=== PATIENT | male | born 1985 | race Caucasian/White ===

== ENCOUNTER 2016-11-09 00:45 | Emergency (ER) | payer OTHER ==
[~2016-11-09] VITALS: Ht 177.8 cm; Wt 100.0 kg
[2016-11-09 00:48] VITALS: BP 157/86; PULSE 131; RESP 30; TEMP 98.6; O2SAT 100
[2016-11-09] MEDS ORDERED: ADVI200C PO (01:00)
[2016-11-09] MEDS ORDERED: PEPT262C2 CHEW (01:00)
[2016-11-09] MEDS ORDERED: PHENTAB (01:00)
[2016-11-09] MEDS ORDERED: DEXT1CAP37 PO (01:00)
[2016-11-09] MEDS ORDERED: SODIUM CHLOR 0.9% 1000 ML INJ 1,000 ML IV ONE ×2 (01:15→03:00)
[2016-11-09] MEDS ORDERED: methylPREDNISolone SOD SUCC 125 MG/2 ML VIAL IV PUSH ONE (01:30)
[2016-11-09] MEDS ORDERED: AZITHROMYCIN INJ 500 MG in SODIUM CHLOR 0.9% 250 ML INJ 250 ML IV ONE (01:30)
--- NOTE | 2016-11-09 01:37 | PD ---
HPI Chief Complaint: Respiratory Symptoms Time Seen by Provider: 01:02 Travel History International Travel<30 days: No Contact w/Intl Traveler<30days: No Traveled to known affect area: No History of Present Illness HPI The patient is a 31 year old male who presents to the [facility] emergency department with a history of congestion, cough that began 4 days ago. He reports that it was initially associated with diarrhea a couple of times per day , however this has improved with using Pepto-Bismol. The patient reports that he has been taking iksq-iuo-lhyoyav decongestants to help with the cough and congestion. He reports that he does have a dry cough. He reports that he has a tickle in the back of his throat and sore throat. He denies any known fevers. He denies having any nausea or vomiting. Review of systems, the patient denies having any chest pain or chest pressure. He denies having any lower extremity edema, calf pain, or erythema. He denies having any abdominal pain, urinary symptoms, or neurologic symptoms. PFSH Past Medical History Narrative Medical The patient reports having a history of pneumonia 4 years ago, pharyngitis, and bronchitis July 2016. Medical History: Denies Significant Hx Tetanus Vaccination: < 5 Years Influenza Vaccination: No Past Surgical History Narrative Surgical The patient denies any past surgical history. Surgical History: No Previous Surgery Social History Alcohol Use: Yes (OCC) Tobacco Use: No Substance Use: No Allergies-Medications (Allergen,Severity, Reaction): Coded Allergies: No Known Allergies (Unverified , 11/09/16) Reported Meds & Prescriptions Reported Meds & Active Scripts Active Reported Advil Pm (Ibuprofen-Diphenhydramine) 200-25 Mg Cap 1 Cap PO HS PRN Tylenol Cold & Flu Severe (Mbdxvryfdpkja-TI-Oclrvqvxcwr-Apap) 0-85-435-325 Mg Tab 10 Pepto-Bismol (Bismuth Subsalicylate) 262 Mg Chew 524 Mg CHEW PRN Daytime Cold & Flu Relief (Yvgvofbsckspidkf-Yvrkcqwiezmsb-Dfzozjalsgxwy) 10-5- 325 mg Cap 2 Cap PO Q4H PRN Review of Systems Except as stated in HPI: all other systems reviewed are Neg General / Constitutional: No: Fever Eyes: No: Visual changes HENT: Positive: Sore Throat, Rhinorrhea, Congestion, No: Headaches Cardiovascular: Positive: Dyspnea on exertion, No: Chest Pain or Discomfort Respiratory: Positive: Cough, Shortness of Breath Gastrointestinal: No: Abdominal Pain Genitourinary: No: Urgency, Frequency, Dysuria, Flank Pain Musculoskeletal: No: Pain Skin: No Rash Neurologic: No: Weakness, Focal Abnormalities, Change in Mentation, Slurred Speech, Paresthesia, Sensory Disturbance Psychiatric: No: Depression Endocrine: No: Polyuria, Polydipsia Hematologic/Lymphatic: No: Easy Bruising Physical Exam Narrative General: The patient is a well-developed well-nourished male who arrives with reported shortness of breath, tachycardia with heart rate in the 130s Head and Neck exam: Head is normocephalic atraumatic. Eyes: Pupils are equal round and reactive to light. Nose: Midline septum with pink mucous membranes Mouth: Dentition unremarkable. Moist mucus membranes. Posterior oropharynx is erythematous with tonsillar hypertrophy and exudate on the right tonsil. Uvula midline. Airway patent. Neck: No palpable lymphadenopathy. No nuchal rigidity. No thyromegaly. Cardiovascular: Sinus tachycardia in the 120s initially on my arrival without murmurs, gallops, or rubs. No pulse deficit to the extremities with simultaneous auscultation and palpation of his radial artery. Lungs: Clear to auscultation bilaterally. No wheezes, rhonchi, or rales. Abdomen: Soft, without tenderness to palpation in all 4 quadrants of the abdomen. No guarding, rebound, or rigidity. Normal bowel sounds are audible Extremities: No clubbing, cyanosis, or edema. 2+ pulses in all 4 extremities. No calf tenderness on palpation. Back: No spinous process tenderness to palpation. No costovertebral angle tenderness to palpation. Neurologic Exam: Grossly nonfocal. Skin Exam: No rash noted. Intact skin that is warm and dry. Data Data Last Documented VS Vital Signs Date Time Temp Pulse Resp B/P Pulse Ox O2 Delivery O2 Flow Rate FiO2 11/09/16 03:25 102 16 144/80 100 Room Air 11/09/16 00:52 2 11/09/16 00:48 98.6 Orders Electrocardiogram (11/09/16 01:08) Complete Blood Count With Diff (11/09/16 01:08) Comprehensive Metabolic Panel (11/09/16 01:08) Creatine Kinase (Cpk) (11/09/16 01:08) Ckmb (Isoenzyme) Profile (11/09/16 01:08) Troponin I (11/09/16 01:08) B-Type Natriuretic Peptide (11/09/16 01:08) Prothrombin Time / Inr (Pt) (11/09/16 01:08) Act Partial Throm Time (Ptt) (11/09/16 01:08) Blood Culture (11/09/16 01:08) Urinalysis - C+S If Indicated (11/09/16 01:08) Magnesium (Mg) (11/09/16 01:08) Thyroid Stimulating Hormone (11/09/16 01:08) Chest, Single Ap (11/09/16 01:08) Sodium Chlor 0.9% 1000 Ml Inj (Ns 1000 M (11/09/16 01:15) Lactic Acid Sepsis Protocol (11/09/16 01:08) Influenzae A/B Antigen (11/09/16 01:08) Group A Rapid Strep Screen (11/09/16 01:16) Azithromycin Inj (Zithromax Inj) (11/09/16 01:30) Methylprednisolone So Succ Inj (Solumedr (11/09/16 01:30) Strep Culture (Group A) (11/09/16 01:21) CKMB (11/09/16 01:40) CKMB% (11/09/16 01:40) Sodium Chlor 0.9% 1000 Ml Inj (Ns 1000 M (11/09/16 03:00) Potassium Chloride (Kcl) (11/09/16 03:00) Ct Pulmonary Angiogram (11/09/16 02:52) Iohexol 350 Inj (Omnipaque 350 Inj) (11/09/16 03:03) Labs Laboratory Tests Test 11/09/16 01:40 White Blood Count 11.9 TH/MM3 Red Blood Count 4.87 MIL/MM3 Hemoglobin 14.5 GM/DL Hematocrit 42.3 % Mean Corpuscular Volume 86.9 FL Mean Corpuscular Hemoglobin 29.7 PG Mean Corpuscular Hemoglobin 34.2 % Concent Red Cell Distribution Width 12.7 % Platelet Count 307 TH/MM3 Mean Platelet Volume 10.2 FL Neutrophils (%) (Auto) 51.1 % Lymphocytes (%) (Auto) 32.3 % Monocytes (%) (Auto) 11.9 % Eosinophils (%) (Auto) 4.0 % Basophils (%) (Auto) 0.7 % Neutrophils # (Auto) 6.1 TH/MM3 Lymphocytes # (Auto) 3.9 TH/MM3 Monocytes # (Auto) 1.4 TH/MM3 Eosinophils # (Auto) 0.5 TH/MM3 Basophils # (Auto) 0.1 TH/MM3 CBC Comment DIFF FINAL Differential Comment Prothrombin Time 11.1 SEC Prothromb Time International 1.0 RATIO Ratio Activated Partial 27.6 SEC Thromboplast Time Urine Color LIGHT-YELLOW Urine Turbidity CLEAR Urine pH 7.0 Urine Specific [place] 1.008 Urine Protein NEG mg/dL Urine Glucose (UA) NEG mg/dL Urine Ketones NEG mg/dL Urine Occult Blood NEG Urine Nitrite NEG Urine Bilirubin NEG Urine Urobilinogen LESS THAN 2.0 MG/DL Urine Leukocyte Esterase NEG Urine RBC LESS THAN 1 /hpf Urine WBC LESS THAN 1 /hpf Urine Mucus FEW /lpf Microscopic Urinalysis Comment CULT NOT INDICATED Sodium Level 138 MEQ/L Potassium Level 3.0 MEQ/L Chloride Level 101 MEQ/L Carbon Dioxide Level 25.0 MEQ/L Anion Gap 12 MEQ/L Blood Urea Nitrogen 11 MG/DL Creatinine 1.46 MG/DL Estimat Glomerular Filtration 57 ML/MIN Rate Random Glucose 116 MG/DL Lactic Acid Level 1.5 mmol/L Calcium Level 8.6 MG/DL Magnesium Level 1.7 MG/DL Total Bilirubin 0.3 MG/DL Aspartate Amino Transf 27 U/L (AST/SGOT) Alanine Aminotransferase 48 U/L (ALT/SGPT) Alkaline Phosphatase 89 U/L Total Creatine Kinase 103 U/L Creatine Kinase MB LESS THAN 0.5 NG/ML Troponin I LESS THAN 0.02 NG/ML B-Type Natriuretic Peptide 21 PG/ML Total Protein 7.9 GM/DL Albumin 4.0 GM/DL Thyroid Stimulating Hormone 2.330 uIU/ML 3rd Gen [facility] Medical Decision Making Medical Screen Exam Complete: Yes Emergency Medical Condition: Yes Medical Record Reviewed: Yes Interpretation(s) Last Impressions Chest X-Ray 11/09/16 0108 Signed Impressions: Service Date/Time: Wednesday, November 09, 2016 01:20 - CONCLUSION: No acute disease. Ronald Acosta MD Differential Diagnosis Strep pharyngitis, versus viral syndrome, versus bronchitis, versus pneumonia, versus PE, versus reactive airway Narrative Course During the course of the patients emergency department visit, the patients history, examination, and differential diagnosis were reviewed with the patient. The patient had IV access obtained and blood work sent for analysis. The patient was placed on a monitoring engineer with oximetry and blood pressure monitoring. An EKG was done. The patient's EKG shows a sinus tachycardia rate of 123, no acute ST segment elevation or depression. The patient was provided normal saline 1 L IV fluid bolus. The patient was given Solu-Medrol 125 mg IV. The patient was given azithromycin 500 mg IV times one. The patients laboratory studies were reviewed and remarkable for a white count of 11.9, hemoglobin 14.5, platelets 307 with 11.9 monocytes, CMP is remarkable for potassium of 3.0, creatinine 1.46, glucose 116. The patient's potassium was supplemented orally. The patient was given another liter of normal saline IV fluids. Cardiac enzymes were negative, BNP 21, TSH 2.33, lactic acid 1.5, PT PTT unremarkable, urinalysis unremarkable. A rapid strep test was negative, influenza antigen was negative. Radiology studies were reviewed and remarkable for a chest x-ray showed no acute abnormality. CTA to rule out PE was read as negative for pulmonary embolism by the reading radiologist. The patient's symptoms are most consistent with acute bronchitis. The patient will be discharged home with a prescription for a azithromycin to complete his course, and a short course of prednisone. The patient is resting comfortably and feels better, is alert and in no distress. The patients results and examination findings The repeat examination is unremarkable and benign. The history, exam, diagnostic testing, and current condition do not suggest any significant pathology to warrant further testing, continued ED treatment, admission, or surgical evaluation at this point. The vital signs have been stable. The patient does not have uncontrollable pain, intractable vomiting, or other significant symptoms. The patient's condition is stable and appropriate for discharge. The patient will pursue further outpatient evaluation with a primary care physician or other designated or consulting physician as indicated in the discharge instructions. The patient expressed understanding and was agreeable with this plan. Diagnosis Primary Impression: Acute bronchitis Qualified Code: J20.9 - Acute bronchitis, unspecified organism Additional Impression: Reactive airway disease Qualified Code: J45.909 - Reactive airway disease, unspecified asthma severity , uncomplicated Referrals: Primary Care Physician 2 days Patient Instructions: Acute Bronchitis (ED), General Instructions, Reactive Airways Disease (ED) Med/Other Pt SpecificInfo: Prescription(s) given Scripts Albuterol Powder Inh (Proair Respiclick Inh)90 Mcg/Act Aerp2 Puff INH Q6H PRN ( SHORTNESS OF BREATH) #1 INHALER Ref 0 Prov:Alexsandra Blanco MD 11/09/16 Prednisone 20 Mg Tab20 Mg PO BID 5 Days Ref 0 Prov:Alexsandra Blanco MD 11/09/16 Azithromycin 250 Mg [id number] Mg PO DAILY #4 TAB Ref 0 Prov:Alexsandra Blanco MD 11/09/16 Disposition: 01 DISCHARGE HOME Condition: Stable Alexsandra Blanco MD Nov 09, 2016 01:37
--- NOTE | 2016-11-09 01:38 | RADRPT ---
EXAM DATE/TIME: 11/09/2016 01:20 [facility] COMPARISON: No previous studies available for comparison. INDICATIONS : Shortness of breath. MEDICAL HISTORY : None. SURGICAL HISTORY : None. ENCOUNTER: Initial ACUITY: 1 day PAIN SCORE: 0/10 LOCATION: Bilateral chest FINDINGS: A single view of the chest demonstrates the lungs to be symmetrically aerated without evidence of mas s, infiltrate or effusion. The cardiomediastinal contours are unremarkable. Osseous structures are intact. CONCLUSION: No acute disease. Ronald Acosta MD on November 09, 2016 at 1:36 Board Certified Radiologist. This report was verified electronically.
[2016-11-09 01:41] VITALS: BP 143/91; PULSE 100; RESP 15; O2SAT 100
[2016-11-09 01:53] LABS: AUTOMATED NEUTROPHIL # 6.1 TH/MM3 (1.8-7.7); BASOPHIL # 0.1 TH/MM3 (0-0.2); BASOPHIL % 0.7 % (0.0-2.0); EOSINOPHIL # 0.5 TH/MM3 (0-0.4); HEMATOCRIT 42.3 % (39.0-51.0); HEMO FLAGS DIFF FINAL; LYMPH % 32.3 % (9.0-44.0); LYMPHOCYTE # 3.9 TH/MM3 (1.0-4.8); MEAN CELL VOLUME 86.9 FL (80.0-100.0); MEAN CORPUSCULAR HEMOGLOBIN 29.7 PG (27.0-34.0); MEAN CORPUSCULAR HGB CONC 34.2 % (32.0-36.0); MONO % 11.9 % (0.0-8.0); NEUT % 51.1 % (16.0-70.0); PLATELET COUNT 307 TH/MM3 (150-450); RED BLOOD COUNT 4.87 MIL/MM3 (4.50-5.90); RED CELL DISTRIBUTION WIDTH 12.7 % (11.6-17.2); WHITE BLOOD COUNT 11.9 TH/MM3 (4.0-11.0)
[2016-11-09 01:55] LABS: BLOOD, URINE NEG (NEG); GLUCOSE,URINE NEG (NEG); KETONE, URINE NEG (NEG); MUCUS URINE FEW /lpf (OCC); NITRITE,URINE NEG (NEG); URINE COLOR LIGHT-YELLOW (YELLW/STRAW)
[2016-11-09 02:02] LABS: APTT (PATIENT) 27.6 SEC (24.3-30.1); PROTHROMBIN TIME - PATIENT 11.1 SEC (9.8-11.6)
[2016-11-09 02:11] LABS: ALT (GPT) 48 U/L (12-78); ANION GAP 12 MEQ/L (5-15); AST (GOT) 27 U/L (15-37); BLOOD UREA NITROGEN 11 MG/DL (7-18); CHLORIDE 101 MEQ/L (98-107); GLOMERULAR FILTRATION RATE 57 ML/MIN (>89); MAGNESIUM 1.7 MG/DL (1.5-2.5); SODIUM (NA) 138 MEQ/L (136-145)
[2016-11-09 02:17] LABS: ALKALINE PHOSPHATASE 89 U/L (45-117); CREATINE KINASE 103 U/L (39-308); TOTAL BILIRUBIN ADULT 0.3 MG/DL (0.2-1.0)
[2016-11-09 02:30] LABS: CKMB LESS THAN 0.5 NG/ML (0.5-3.6)
[2016-11-09 02:37] LABS: COMMENT (UR) CULT NOT INDICATED; CULTURE IF INDICATED CULT NOT INDICATED
[2016-11-09] MEDS ORDERED: POTASSIUM CHLORIDE 20 MEQ CONTROLLED RELEASE TAB PO ONE (03:00)
[2016-11-09] MEDS ORDERED: IOHEXOL 350 MG/ML 10 ML VIAL (for RAD DIAG) IV ONE (03:03)
[2016-11-09 03:25] VITALS: BP 144/80; PULSE 102; RESP 16; O2SAT 100
--- NOTE | 2016-11-09 04:32 | RADRPT ---
EXAM DATE/TIME: 11/09/2016 02:59 [facility] COMPARISON: CHEST SINGLE AP, November 09, 2016, 1:20. INDICATIONS : Short of breath. IV CONTRAST: 73 cc Omnipaque 350 (iohexol) IV RADIATION DOSE: 15.87 CTDIvol (mGy) MEDICAL HISTORY : None SURGICAL HISTORY : None. ENCOUNTER: Initial ACUITY: 1 day PAIN SCALE: 0/10 LOCATION: chest TECHNIQUE: Volumetric scanning of the chest was performed using a pulmonary embolism protocol MIP images were re constructed. Using automated exposure control and adjustment of the mA and/or kV according to patien t size, radiation dose was kept as low as reasonably achievable to obtain optimal diagnostic quality images. FINDINGS: PULMONARY ARTERIES: No filling defects are seen in the pulmonary arteries through the segmental level. LUNGS: There is no consolidation or pneumothorax . No concerning pulmonary nodule is visualized. PLEURAE: There is no pleural thickening or pleural effusion. MEDIASTINUM: There is good visualization of the great vessels of the middle mediastinum. No evidence of mediastin al or hilar adenopathy/mass. Moderate-sized hiatal hernia MUSCULOSKELETAL: Within normal limits for patient age. MISCELLANEOUS: The visualized upper abdominal organs demonstrate no acute abnormality. CONCLUSION: No evidence of pulmonary embolism Ronald Acosta MD on November 09, 2016 at 4:27 Board Certified Radiologist. This report was verified electronically.
[2016-11-09] MEDS ORDERED: PRED20 PO (04:39)
[2016-11-09] MEDS ORDERED: AZIT250T3 PO (04:39)
[2016-11-09] MEDS ORDERED: ALBU1AER5 INH (04:39)
--- NOTE | 2016-11-09 19:25 | EKG ---
Date Performed: 11/09/2016 Time Performed: 00:51:17 PTAGE: 31 years EKG: SINUS TACHYCARDIA ABNORMAL RHYTHM ECG NO PREVIOUS TRACING DOCTOR: Maikel Cueva Interpretating Date/Time 11/09/2016 19:21:13
== END 2016-11-09 05:23 | disposition home or self-care (01) ==
LOC: NEPE 00:45
DX: J20.9 Acute bronchitis, unspecified (principal); R06.02 Shortness of breath; R00.0 Tachycardia, unspecified; J45.909 Unspecified asthma, uncomplicated
CPT/HCPCS: 71010; 71275; 80053; 81001; 82550; 82552; 83605; 83735; 83880; 84443; 84484; 85025; 85610; 85730; 87040; 87081; 87804; 87880; 93005; 96365; 96375; 99284; J0456; J2930; J7030; J7050; Q9967